=== PATIENT | female | born 2000 | race Caucasian/White ===

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

== ENCOUNTER 2021-10-18 22:47 | Emergency (ER) | payer BC, MEDICAID, SELFPAY ==
[2021-10-18 23:04] VITALS: BP 129/74; PULSE 82; RESP 18; TEMP 36.9; O2SAT 100
--- NOTE | 2021-10-18 23:18 | ED.GENADUL_ITS ---
Discharge Plan Disposition Patient Disposition: HOME Condition: Stable Discharge Details Clinical Impression: UTI (urinary tract infection) Primary Care Provider: Franca Moore ED Provider: Steven Kwon Home Meds and New Rx's Prescriptions: New ciprofloxacin HCl 500 mg tablet 500 mg PO BID Qty: 14 0RF Discharge Instructions Instructions: Urinary Tract Infection in Women (ED) Additional Instructions: if not improving this week follow up with your primary care provider if you feel more ill, have severe worsening pain or fevers return to the emergency department Medical Decision Making 21 yo female with no chronic medical problems comes in with chief complaint of burning with urination and urinary frequency for 3 days and today started to have right lower back pain. Denies fevers, chills, abdomen pain, n/v. She arrives stable and appears well. She has no cva tenderness or abdominal tenderness. No vaginal bleeding or discahrge. Suspect cystitis less likely pyelo. Will obtain ua and reassess. ua consistent with uti, given the back pain will cover for pyelo with cipro and advised to f/u with pcp if not improving and return precautions given Differential Diagnosis Differential Diagnosis: cystitis, pyelo, Lab Data Lab results reviewed: Yes I reviewed the patient's lab results. HPI General Mode of arrival: ambulatory . Date/Time Provider Initiated Documentation: 10/18/21 22:52 . Limitations to Documentation: no limitations . Information obtained by: patient . History of Present Illness 21 year old F presents to the emergency department with the chief complaint of hurts to pee, described as moderate, Patient started experiencing this day(s) (3) and it has been constant. No relieving factors improve symptom(s), No exacerbating factors reported . Patient notes denies fever/chills. Patient did receive the following treatments prior to arrival, none Related Data Home Medications Medication Instructions Recorded Confirmed ciprofloxacin HCl 500 mg tablet 500 mg PO BID #14 tabs 10/19/21 Previous Rx's Medication Instructions Recorded ciprofloxacin HCl 500 mg tablet 500 mg PO BID #14 tabs 10/19/21 Allergies Allergy/AdvReac Type Severity Reaction Status Date / Time No Known Allergies Allergy Unverified 10/18/21 23:24 General Stated Complaint: Urinary NAMAN: 4 Review of Systems All systems reviewed & are unremarkable except as noted in HPI and below Constitutional Constitutional: Denies weakness Cardiovascular Cardiovascular: Denies chest pain and Denies dyspnea Respiratory Respiratory: Denies cough and Denies dyspnea Gastrointestinal Gastrointestinal: Denies abdominal pain and Denies vomiting Musculoskeletal Musculoskeletal: Denies joint swelling Integumentary/Breasts Skin/Breast: Denies rash Neurologic Neurologic: Denies weakness PFSH All Active Problems (Updated 10/19/21 @ 00:23 by Steven Kwon MD) Elbow injury (Acute) UTI (urinary tract infection) (Acute) Social History Smoking/Tobacco Use Status: Never Smoking risk assessment performed?: Yes Alcohol Intake: never Drug use: Never Substance use type: does not use Do you feel safe at home: Yes Do you feel safe in your relationship?: Yes Exam Const General: no acute distress Orientation: alert HENMT Head: normal to inspection Ears: external ears normal General nose exam: external nose normal Mouth: moist mucous membranes Eyes General: appearance normal, both eyes and all related structures Neck Neck: normal visual inspection Resp Effort & Inspection: normal respiratory effort and able to speak in complete sentences Cardio Rate: regular rate Back/Spine/Pelvis Back: No no CVA tenderness Skin General skin exam: no rashes or lesions noted Neuro General: patient alert and patient oriented x3 Extrem General: normal to inspection Psych Mental Status: mental status grossly normal Course Vital Signs Vital signs: Vital Signs Temperature 36.9 C 10/18/21 23:04 Pulse 82 10/18/21 23:04 Respiratory Rate 18 10/18/21 23:04 Blood Pressure 129/74 10/18/21 23:04 Pulse Oximetry 100 10/18/21 23:04 Temperature 36.9 C 10/18/21 23:04 Temperature Source Temporal Artery Scan 10/18/21 23:04 Pulse 82 10/18/21 23:04 Respiratory Rate 18 10/18/21 23:04 Blood Pressure 129/74 10/18/21 23:04 Blood Pressure Position Sitting 10/18/21 23:04 Pulse Oximetry 100 10/18/21 23:04 Oxygen Delivery Method Room Air 10/18/21 23:04 Oxygen Flow Rate 0 10/18/21 23:04
[2021-10-18 23:51] LABS: Bilirubin Negative (Negative); Blood Trace-intact (Negative); Clarity Sl Cloudy (Clear); Glucose Negative (Negative); Ketones Negative (Negative); Leukocyte Esterase Small (Negative); Nitrite Negative (Negative); Specific Gravity 1.025 (1.005-1.025); Urobilinogen 0.2 EU/dL (Up TO 0.2)
[2021-10-19] LABS: Bacteria Many HPF (Negative); C & S Indicated? Yes; Casts Negative LPF (Negative); Crystals Negative HPF (Negative); Epithelial Cells Few HPF (Negative); Mucus Negative (Negative); WBC >50 HPF (0-5)
[2021-10-19] MEDS: Ciprofloxacin 500 MG TAB PO (00:31)
== END 2021-10-19 00:36 | disposition home or self-care (01) ==
PROVIDERS: Emergency Medicine; Emergency Provider Emergency Medicine; PCP Nurse Practitioner Family
DX: N39.0 Urinary tract infection, site not specified (principal); B96.20 Unspecified Escherichia coli [E. coli] as the cause of diseases classified elsewhere
CPT/HCPCS: 81025; 87077; 99283; 81003; 81015; 87086; 87186